=== PATIENT | male | born 1955 | race Caucasian/White ===

== ENCOUNTER 2022-07-15 06:11 | Day surgery (SDC) | payer MEDICARE ==
[~2022-07-15] VITALS: Ht 185.4 cm; Wt 109.3 kg
[~2022-07-15 06:11] MED LIST: AMIO200T49 PO; ELIQ5TAB PO; METO1TAB87 PO; VALS40TA9 PO; VITA200035 PO; [UNRECOGNIZED DRUG - OTHER] PO
[2022-07-15] MEDS ORDERED: LR 1,000 ML IV SCH ×2 (06:20→07:20)
[2022-07-15] MEDS ORDERED: fentaNYL 100 MCG/2 ML INJECTION IV PRN (07:20)
[2022-07-15] MEDS ORDERED: ONDANSETRON 4MG 2ML VIAL IV PRN (07:20)
[2022-07-15] MEDS ORDERED: MORPHINE 2 MG/ML 1ML VIAL IV PRN (07:20)
[2022-07-15] MEDS ORDERED: oxyCODONE 5MG TAB PO PRN (07:20)
[2022-07-15 07:38] VITALS: BP 157/100
[2022-07-15] MEDS ORDERED: NITROGLYCERIN 2% OINT 1 GM *U/D* PKT TOP STA (07:38)
[2022-07-15] MEDS ORDERED: propofoL 200 MG/20 ML VIAL As Ordered ONE (08:26)
[2022-07-15 08:35] VITALS: BP 120/82
== END 2022-07-15 09:03 | disposition home or self-care (01) ==
LOC: M SDC 06:11
PROVIDERS: ATTEND Internal Medicine Cardiovascular Disease
DX: I48.91 Unspecified atrial fibrillation (principal); R00.1 Bradycardia, unspecified; I49.1 Atrial premature depolarization; I51.9 Heart disease, unspecified; E78.5 Hyperlipidemia, unspecified; R53.82 Chronic fatigue, unspecified; R06.02 Shortness of breath; Z79.899 Other long term (current) drug therapy; Z79.01 Long term (current) use of anticoagulants